=== PATIENT | female | born 1990 | race Caucasian/White ===

== ENCOUNTER 2020-01-16 01:29 | Emergency (ER) | payer SELFPAY ==
[2020-01-16] MEDS ORDERED: ONE DAILY WITH1 EACH PO (01:39)
[2020-01-16 02:58] LABS: HEMATOCRIT 43.1 % (37.0-47.0); HEMOGLOBIN 14.5 g/dL (12.5-16.0); MEAN CELL VOLUME 91 fl (78-100); MEAN CORPUSCULAR HEMOGLOBIN 31 pg (27-31); MEAN CORPUSCULAR HGB CONC 34 g/dL (33-37); MEAN PLATELET VOLUME 9.7 fl (7.4-10.4); PLATELET COUNT 392 K/mm3 (130-400); RED BLOOD COUNT 4.74 M/mm3 (4.10-5.30); RED CELL DISTRIBUTION WIDTH 12.7 % (11.5-14.5); WHITE BLOOD COUNT 16.6 K/mm3 (4.8-10.8)
[2020-01-16 02:59] LABS: ALBUMIN 4.1 g/dL (3.5-5.0)
[2020-01-16 03:00] LABS: POTASSIUM 3.7 mmol/L (3.5-5.1)
[2020-01-16 03:01] LABS: CALCIUM 10.8 mg/dL (8.3-10.5)
[2020-01-16 03:02] LABS: TOTAL PROTEIN 7.2 g/dL (6.4-8.3)
[2020-01-16 03:10] LABS: URINE APPEARANCE CLOUDY; URINE BILIRUBIN NEGATIVE (NEGATIVE); URINE BLOOD 250 ery/uL (NEGATIVE); URINE COLOR YELLOW; URINE GLUCOSE NEGATIVE (NEGATIVE); URINE KETONE NEGATIVE (NEGATIVE); URINE LEUKOCYTE ESTERASE 1+ (NEGATIVE); URINE NITRATE NEGATIVE (NEGATIVE); URINE PROTEIN(semi-quant) TRACE mg/dL (NEGATIVE); URINE UROBILINOGEN NORMAL (NORMAL)
[2020-01-16 03:11] LABS: URINE MUCUS PRESENT (NOT PRESENT)
[2020-01-16 03:23] LABS: BAND 81 % (0-10); LYMPHOCYTE 5 % (20-51); MONOCYTE 1 % (3-10); NEUTROPHILS 13 % (42-75)
[2020-01-16 03:31] LABS: TOTAL BILIRUBIN 0.3 mg/dL (0.2-1.2)
[2020-01-16 05:28] VITALS: BP 148/91
== END 2020-01-16 05:28 | disposition short-term general hospital (02) ==
LOC: ED 01:29
PROVIDERS: Physician Assistant
DX: K81.0 Acute cholecystitis (principal); F17.210 Nicotine dependence, cigarettes, uncomplicated
CPT/HCPCS: J2270; Q9967